=== PATIENT | female | born 1985 | race Asian ===

== ENCOUNTER → 2018-06-29 | Outpatient (CLI) | payer OTHER | LOC: M RAD 07:03 | DX: R22.2 Localized swelling, mass and lump, trunk (principal) | CPT/HCPCS: 71250 ==

== ENCOUNTER → 2019-04-05 | Outpatient (CLI) | payer SELFPAY ==
[~2019-04-05] MED LIST: COLA100C5 PO; IBUP80TA PO; PERCOCET PO; PRENTAB74 PO; PROC60TA PO
--- NOTE | 2019-04-06 03:12 | REP ---
Clinical: Tuberculin test positive . Comparison: None . Technique: PA and lateral. Findings: The mediastinum and cardiac silhouette are normal. The lung caba are clear and without acute consolidation, effusion, or pneumothorax. The skeletal structures are intact and normal. Impression: 1. No acute cardiopulmonary process. Electronically Signed by Tom Jimenez MD 04/06/2019 03:04 A
== END ==
LOC: M WUC 11:02
PROVIDERS: ATTEND Family Medicine Adult Medicine
DX: R76.11 Nonspecific reaction to tuberculin skin test without active tuberculosis (principal)

== ENCOUNTER 2020-03-01 20:44 | Emergency (ER) | payer OTHER ==
[~2020-03-01] VITALS: Ht 162.6 cm; Wt 65.9 kg
[2020-03-01] MEDS ORDERED: NS 1,000 ML IV ONE (21:15)
[2020-03-01] MEDS ORDERED: METOCLOPRAMIDE INJ 10MG/2ML VIAL (J2765) IV ONE (21:15)
[2020-03-01 21:23] LABS: BASO % 0.4 % (0.0-1.0); EOS % 0.1 % (0.0-3.0); HEMATOCRIT 39.9 % (36.0-47.0); HEMOGLOBIN 13.6 g/dl (12.0-15.5); LYMPH # 1.3 10^3/uL (1.5-5.0); LYMPH % 13.3 % (24.0-44.0); MEAN CORPUSCULAR HEMOGLOBIN 28.7 pg (27.0-33.0); MEAN CORPUSCULAR HGB CONC 34.1 g/dl (32.0-36.5); MEAN CORPUSCULAR VOLUME 84.2 fl (80.0-96.0); MONO # 0.3 10^3/uL (0.0-0.8); MONO % 2.6 % (0.0-5.0); NEUTROPHILS % 83.3 % (36.0-66.0); PLATELET COUNT, AUTOMATED 306 10^3/uL (150-450); RED BLOOD COUNT 4.74 10^6/uL (4.00-5.40); WHITE BLOOD COUNT 9.6 10^3/uL (4.0-10.0)
[2020-03-01 21:46] LABS: HCG, SERUM QUALITATIVE NEGATIVE (NEGATIVE)
[2020-03-01 21:48] LABS: ALT/SGPT 20 U/L (12-78); BILIRUBIN,DIRECT 0.1 MG/DL (0.0-0.2); BILIRUBIN,TOTAL 0.4 MG/DL (0.2-1.0); BLOOD UREA NITROGEN 12 MG/DL (7-18); CALCIUM LEVEL 8.7 MG/DL (8.5-10.1); CARBON DIOXIDE LEVEL 27 MEQ/L (21-32); CHLORIDE LEVEL 102 MEQ/L (98-107); CREATININE FOR GFR 0.68 MG/DL (0.55-1.30); GLOMERULAR FILTRATION RATE > 60.0 (>60); GLUCOSE, FASTING 134 MG/DL (70-100); LIPASE 81 U/L (73-393); POTASSIUM SERUM 3.5 MEQ/L (3.5-5.1); SODIUM LEVEL 133 MEQ/L (136-145); TOTAL PROTEIN 7.9 GM/DL (6.4-8.2)
--- NOTE | 2020-03-01 22:15 | REPVR ---
PROCEDURE INFORMATION: Exam: CT Head Without Contrast Exam date and time: 03/01/2020 10:00 PM Age: 35 years old Clinical indication: Pain; Headache; Additional info: Headache, vomiting TECHNIQUE: Imaging protocol: Computed tomography of the head without contrast. Radiation optimization: All CT scans at this facility use at least one of these dose optimization techniques: automated exposure control; mA and/or kV adjustment per patient size (includes targeted exams where dose is matched to clinical indication); or iterative reconstruction. COMPARISON: No relevant prior studies available. FINDINGS: Brain: There is no evidence of infarct, lamb-white matter differentiation is preserved. There is no hemorrhage or extra-axial collection. There is no mass. No evidence of subarachnoid hemorrhage. Ventricles: There is no hydrocephalus. Bones/joints: Unremarkable. No acute fracture. Sinuses: Visualized sinuses are unremarkable. No fluid levels. Mastoid air cells: Visualized mastoid air cells are well aerated. Soft tissues: Unremarkable. IMPRESSION: No intracranial lesion or injury. Electronically signed by: Joe العلي On 03/01/2020 22:14:38 PM
[2020-03-02 00:06] VITALS: BP 131/77
--- NOTE | 2020-03-02 07:51 | ECGEPIP ---
[facility] - ED Test Date: 2020-03-01 Pat Name: LYNNE KENDALL Department: Room: - Gender: Female Sheep Rancher: er : 1985 Requested By: VIGNESH Paez Order Number: [id number] Reading MD: Danielito Jimenez Measurements Intervals [place] Rate: 85 P: 68 [place]: 175 QRS: 6 QRSD: 89 T: 70 QT: 390 QTc: 464 Interpretive Statements SINUS RHYTHM Nonspecific T wave abnormality Comparison tracing not on file Electronically Signed on 03-02-2020 7:51:39 EDT by Danielito Jimenez
== END 2020-03-02 00:11 | disposition home or self-care (01) ==
LOC: M ED 20:44
DX: R51 Headache (principal); R11.10 Vomiting, unspecified; Z88.2 Allergy status to sulfonamides
CPT/HCPCS: 70450; 80048; 80076; 83690; 84703; 85025; 93005; 93041; 94760; 96361; 96374; 99285; J2765